=== PATIENT | female | born 1960 | race Two or more races ===

== ENCOUNTER 2020-09-26 14:36 | Emergency (ER) | payer MEDICAID, OTHER ==
[~2020-09-26] VITALS: Ht 162.6 cm; Wt 102.5 kg
[2020-09-26 14:44] VITALS: BP 150/80
[2020-09-26] MEDS ORDERED: METHOCARBAMOL 500 MG TAB PO ONE (15:30)
[2020-09-26] MEDS ORDERED: KETOROLAC TROMETH 60MG/2ML VIAL IM ONE (15:30)
== END 2020-09-26 20:38 | disposition home or self-care (01) ==
LOC: ER 14:36
DX: J18.9 Pneumonia, unspecified organism (principal); Z20.828 Contact with and (suspected) exposure to other viral communicable diseases
CPT/HCPCS: 36415; 71046; 72070; 87426